=== PATIENT | female | born 1980 | race Caucasian/White ===

== ENCOUNTER 2023-03-25 14:16 | Emergency (ER) | payer MEDICAID ==
[~2023-03-25] VITALS: Ht 165.1 cm; Wt 66.2 kg
[2023-03-25] MEDS ORDERED: IV NS 0.9% 1,000 ML BAG IV ONE (15:30)
[2023-03-25] MEDS ORDERED: diphenhydrAMINE HCL 50 MG/ML VIAL IV ONE (15:30)
[2023-03-25] MEDS ORDERED: PROCHLORPERAZINE EDISYLATE 10 MG/2 ML VIAL IVP ONE (15:30)
[2023-03-25] MEDS ORDERED: KETOROLAC TROMETHAMINE 15 MG/ML VIAL IV ONE (15:30)
[2023-03-25] MEDS ORDERED: KETOROLAC TROMETHAMINE 15 MG/ML VIAL ONE (15:57)
[2023-03-25] MEDS ORDERED: diphenhydrAMINE HCL 50 MG/ML VIAL ONE (15:57)
[2023-03-25] MEDS ORDERED: PROCHLORPERAZINE EDISYLATE 10 MG/2 ML VIAL ONE (15:58)
[2023-03-25 16:14] LABS: BASOPHILS # (AUTO) 0.1 K/uL (0.0-0.2); BASOPHILS % (AUTO) 0.6 % (0.0-2.0); EOSINOPHILS % (AUTO) 0.1 % (0.0-6.0); HEMATOCRIT 38 % (33-45); HEMOGLOBIN 12.7 g/dL (11.5-14.8); LYMPHOCYTES # (AUTO) 1.4 K/uL (0.8-4.8); LYMPHOCYTES % (AUTO) 12.9 % (20.0-44.0); MEAN CORPUSCULAR HEMOGLOBIN 30 PG (26.0-33.0); MEAN CORPUSCULAR HGB CONC 34 g/dl (31.0-36.0); MEAN CORPUSCULAR VOLUME 88 fL (82-100); MONOCYTES # (AUTO) 0.5 K/uL (0.1-1.30); NEUTROPHILS # (AUTO) 8.9 K/uL (1.8-8.9); NEUTROPHILS % (AUTO) 81.4 % (43.0-81.0); PLATELET COUNT (AUTO) 359 K/uL (150-450); RED BLOOD CELL COUNT(AUTO) 4.25 MIL/uL (4.0-5.2); RED CELL DISTRIBUTION WIDTH 14.2 % (11.5-15.0); WHITE BLOOD COUNT (AUTO) 10.9 K/uL (4.3-11.0)
[2023-03-25 16:29] LABS: CALCIUM, SERUM 9.9 mg/dL (8.5-10.1); CREATININE 0.9 mg/dL (0.6-1.3); POTASSIUM 3.4 mmol/L (3.5-5.1)
[2023-03-25 18:27] LABS: PREGNANCY TEST URINE QUAL NEGATIVE (NEGATIVE)
[2023-03-25] MEDS ORDERED: IBUP-1957 PO (18:35)
[2023-03-25 18:44] VITALS: BP 124/78; TEMP 98.2; O2SAT 100
== END 2023-03-25 18:45 | disposition home or self-care (01) ==
LOC: ER 14:39
DX: R51.9 Headache, unspecified (principal); R10.2 Pelvic and perineal pain; Z79.899 Other long term (current) drug therapy
CPT/HCPCS: 99285; 96374; 70450; 96375; 96361; 85025; 80048; 84703; 36415; J0780; J1200; J1885; J7030